=== PATIENT | male | born 1990 | race Caucasian/White ===

== ENCOUNTER 2017-09-18 14:30 | Inpatient (IN) | payer MEDICAID ==
[~2017-09-18] VITALS: Ht 185.4 cm; Wt 77.1 kg
[2017-09-18 14:30] VITALS: BP_SYST 139
[2017-09-18] MEDS ORDERED: NACL 0.9% 1,000 ML IV ONE (15:00)
[2017-09-18] MEDS ORDERED: FOLIC ACID 1 MG, THIAMINE HCL 100 MG, MAGNESIUM SULFATE 1 GM, MVI 10 ML in NACL 0.9% 1,... IV ONE (15:00)
[2017-09-18 15:07] LABS: BASOPHILS % (AUTO) 0.7 % (0.0-2.0); EOSINOPHILS % (AUTO) 0.2 % (0.0-4.0); HEMATOCRIT 50.6 % (36-54); HEMOGLOBIN 17.1 g/dL (14.0-18.0); LYMPHOCYTES # (AUTO) 1.1 K/uL (1.0-5.5); LYMPHOCYTES % (AUTO) 25.5 % (20.5-51.5); MEAN CORPUSCULAR HEMOGLOBIN 32 pg (27-31); MEAN CORPUSCULAR HGB CONC 34 % (32-36); MEAN CORPUSCULAR VOLUME 94 fL (79.0-98.0); MONOCYTES # (AUTO) 0.4 K/uL (0.0-1.0); MONOCYTES % (AUTO) 10.2 % (1.7-9.3); NEUTROPHILS # (AUTO) 2.9 K/uL (1.8-7.7); NEUTROPHILS % (AUTO) 63.4 % (40.0-70.0); PLATELET COUNT (AUTO) 191 K/uL (130-430); RED BLOOD CELL COUNT(AUTO) 5.37 MIL/uL (4.2-6.2); RED CELL DISTRIBUTION WIDTH 13.8 % (9.0-15.0); WHITE BLOOD COUNT (AUTO) 4.4 K/uL (4.8-10.8)
[2017-09-18 15:15] LABS: ANION GAP 15 (5-15); CALCIUM 8.8 mg/dL (8.4-11.0); CHLORIDE 96 mmol/L (98-107); CREATININE 0.82 mg/dL (0.55-1.30); GLUCOSE 122 mg/dL (70-99); POTASSIUM 3.6 mmol/L (3.5-5.1); SODIUM SERUM 141 mmol/L (136-145); UREA NITROGEN, BLOOD 11 mg/dL (8-21)
[2017-09-18 15:16] LABS: GFR AFRICAN AMERICAN 143 mL/min (>90)
[2017-09-18 15:20] LABS: INR 0.9 (0.80-1.20); PROTHROMBIN TIME 8.8 SECS (9.5-12.5)
[2017-09-18 15:23] LABS: ALANINE AMINOTRANSFERASE 57 U/L (12-78); ALBUMIN 4.7 g/dL (3.4-4.8); ASPARTATE AMINOTRANSFERASE 100 U/L (10-37); TOTAL BILIRUBIN 0.6 mg/dL (0.0-1.0)
[2017-09-18 15:27] LABS: ALCOHOL, BLOOD 479 mg/dL (<10)
[2017-09-18 15:31] LABS: ACETAMINOPHEN < 1 ug/mL (1-30)
[2017-09-18 16:46] VITALS: BP_SYST 119
[2017-09-18] MEDS ORDERED: LORazepam 2 MG/ML VIAL ONE (18:00)
[2017-09-18 20:00] VITALS: BP_SYST 134
[2017-09-18] MEDS: QUEtiapine FUMARATE 100 MG TABLET PO SCH (20:26)
[2017-09-18] MEDS: LORazepam 2 MG/ML VIAL IVP PRN ×2 (21:58→23:02)
[2017-09-19] MEDS: LORazepam 2 MG/ML VIAL IVP PRN ×10 (00:12→21:50)
[2017-09-19 00:45] VITALS: BP_SYST 101
[2017-09-19 05:09] VITALS: BP_SYST 105
[2017-09-19 07:07] LABS: BASOPHILS # (AUTO) 0.1 K/uL (0.0-0.2); BASOPHILS % (AUTO) 1.3 % (0.0-2.0); HEMATOCRIT 39.8 % (36-54); HEMOGLOBIN 13.8 g/dL (14.0-18.0); LYMPHOCYTES # (AUTO) 0.9 K/uL (1.0-5.5); MEAN CORPUSCULAR HEMOGLOBIN 32 pg (27-31); MEAN CORPUSCULAR HGB CONC 35 % (32-36); MEAN CORPUSCULAR VOLUME 93 fL (79.0-98.0); MONOCYTES # (AUTO) 0.4 K/uL (0.0-1.0); MONOCYTES % (AUTO) 8.9 % (1.7-9.3); NEUTROPHILS # (AUTO) 2.8 K/uL (1.8-7.7); NEUTROPHILS % (AUTO) 67.8 % (40.0-70.0); PLATELET COUNT (AUTO) 119 K/uL (130-430); RED BLOOD CELL COUNT(AUTO) 4.28 MIL/uL (4.2-6.2); RED CELL DISTRIBUTION WIDTH 13.8 % (9.0-15.0); WHITE BLOOD COUNT (AUTO) 4.2 K/uL (4.8-10.8)
[2017-09-19 07:41] LABS: ALBUMIN 3.5 g/dL (3.4-4.8); CALCIUM 9.1 mg/dL (8.4-11.0); CREATININE 0.65 mg/dL (0.55-1.30); POTASSIUM 3.4 mmol/L (3.5-5.1); TOTAL BILIRUBIN 0.7 mg/dL (0.0-1.0)
[2017-09-19 08:04] VITALS: BP_SYST 142
[2017-09-19 08:59] LABS: BILIRUBIN,URINE NEGATIVE (NEGATIVE); BLOOD, URINE NEGATIVE (NEGATIVE); CLARITY/URINE CLEAR (CLEAR); COLOR,URINE YELLOW (YELLOW); GLUCOSE,URINE NEGATIVE (NEGATIVE); KETONES,URINE TRACE (NEGATIVE); LEUKOCYTE ESTERASE ,URINE NEGATIVE (NEGATIVE); NITRITE, URINE NEGATIVE (NEGATIVE); PH,URINE 6.5 (5.0-8.0); PROTEIN URINE NEGATIVE (NEGATIVE); UROBILINOGEN,URINE 0.2 (0.2-1.0)
[2017-09-19 10:22] LABS: CANNABINOID, URINE POSITIVE (NEG <=50)
[2017-09-19 10:23] LABS: BARBITURATE, URINE NEGATIVE (NEG <=200); BENZODIAZEPINE, URINE POSITIVE (NEG <=150); COCAINE, URINE NEGATIVE (NEG <=150); METHAMPHETAMINES SCREEN,URINE NEGATIVE (NEG <=500); OPIATE, URINE POSITIVE (NEG <=100); PHENCYCLIDINE SCREEN,URINE NEGATIVE (NEG <=25); UR TRICYCLIC ANTIDEPRESSANTS POSITIVE (NEG <=300); URINE AMPHETAMINE NEGATIVE (NEG <=500); URINE METHADONE NEGATIVE (NEG <=200); URINE OXYCODONE SCREEN NEGATIVE (NEG <=100); URINE PROPOXYPHENE SCREEN NEGATIVE (NEG <=300)
[2017-09-19 12:03] VITALS: BP_SYST 136
[2017-09-19] MEDS ORDERED: MILK OF MAGNESIA 30 ML UDC PO PRN ×2 (13:15)
[2017-09-19] MEDS ORDERED: POTASSIUM CHLORIDE 20 MEQ TAB.PRT.SR PO ONE (15:15)
[2017-09-19] MEDS ORDERED: chlordiazePOXIDE HCL 25 MG CAPSULE PO ONE (15:15)
[2017-09-19 16:46] VITALS: BP_SYST 118
[2017-09-19] MEDS: chlordiazePOXIDE HCL 25 MG CAPSULE PO SCH ×2 (17:00→20:30)
[2017-09-19] MEDS: QUEtiapine FUMARATE 100 MG TABLET PO SCH (18:07)
[2017-09-19 20:00] VITALS: BP_SYST 127
[2017-09-19] MEDS: POTASSIUM CHLORIDE 20 MEQ TAB.PRT.SR PO SCH (20:30)
[2017-09-20 00:50] VITALS: BP_SYST 126
[2017-09-20 08:02] VITALS: BP_SYST 131
[2017-09-20] MEDS: chlordiazePOXIDE HCL 25 MG CAPSULE PO SCH ×3 (08:04→17:00)
[2017-09-20] MEDS: POTASSIUM CHLORIDE 20 MEQ TAB.PRT.SR PO SCH (08:04)
[2017-09-20] MEDS: LORazepam 2 MG/ML VIAL IVP PRN ×4 (08:26→15:31)
[2017-09-20 12:45] VITALS: BP_SYST 122
[2017-09-20 18:14] VITALS: BP_SYST 115; BP_SYST 138
[2017-09-20 18:42] VITALS: BP_SYST 138
== END 2017-09-20 19:00 | disposition home or self-care (01) | DRG 425 ==
LOC: SED 14:30 → SMU 15:56 → STU 16:00
PROVIDERS: ADMIT Internal Medicine; ATTEND Internal Medicine
DX: E87.6 Hypokalemia (principal); F32.9 Major depressive disorder, single episode, unspecified; F10.129 Alcohol abuse with intoxication, unspecified; F19.10 Other psychoactive substance abuse, uncomplicated; Y90.9 Presence of alcohol in blood, level not specified; F41.1 Generalized anxiety disorder; F11.10 Opioid abuse, uncomplicated
CPT/HCPCS: 36415; 70450-TC; 70480; 71045; 80053; 80307; 81003; 84484; 85025; 85610-TC; 85730-TC; 93005; 96365; 99285; G0480; G0481; G0482; J2060; J3411; J3475; J3490; J7030

== ENCOUNTER 2018-05-02 09:30 | Emergency (ER) | payer MEDICAID ==
--- NOTE | 2018-05-02 09:30 | NUR ---
CALLED FOR TRIAGE AND PT NOT IN WAITING ROOM. ACCORDING TO ADMITTING STAFF, PT WAS ON THE PHONE AND WALKED OUTSIDE. SEARCHED OUTSIDE AND UNABLE TO LOCATE PT. CHARGE NURSE DONNIE SAENZ.
--- NOTE | 2018-05-02 09:40 | NUR ---
CALLED FOR TRIAGE AND UNABLE TO LOCATE PT.
--- NOTE | 2018-05-02 09:55 | NUR ---
CALLED BACK FOR TRIAGE AND UNABLE TO LOCATE PT. PT NOT IN WAITING ROOM OR OUTSIDE. PT IS LEFT WITHOUT BEING SEEN.
== END 2018-05-02 09:55 | disposition left against medical advice (07) ==
LOC: SED 09:30
DX: F41.9 Anxiety disorder, unspecified (principal); Z53.21 Procedure and treatment not carried out due to patient leaving prior to being seen by health care provider

== ENCOUNTER 2018-05-04 10:14 | Emergency (ER) | payer MEDICAID ==
[~2018-05-04] VITALS: Ht 185.4 cm; Wt 83.9 kg
[2018-05-04 10:26] VITALS: BP_SYST 144
--- NOTE | 2018-05-04 10:27 | NUR ---
Pt placed in bed 1
[2018-05-04] MEDS ORDERED: NACL 0.9% 1,000 ML IV ONE (10:32)
--- NOTE | 2018-05-04 10:42 | NUR ---
MD Rico at bedside.
--- NOTE | 2018-05-04 10:55 | NUR ---
Pt left AMA, Dr Rico is aware
== END 2018-05-04 10:55 | disposition left against medical advice (07) ==
LOC: SED 10:14
DX: F41.9 Anxiety disorder, unspecified (principal); F10.10 Alcohol abuse, uncomplicated
CPT/HCPCS: 71045; 99283

== ENCOUNTER 2018-05-30 10:59 | Emergency (ER) | payer MEDICAID ==
[~2018-05-30] VITALS: Ht 185.4 cm; Wt 83.9 kg
[2018-05-30 11:54] VITALS: BP_SYST 132
[2018-05-30 12:58] LABS: BASOPHILS % (AUTO) 0.3 % (0.0-2.0); EOSINOPHILS % (AUTO) 0.1 % (0.0-4.0); HEMATOCRIT 45.7 % (36-54); LYMPHOCYTES # (AUTO) 1.2 K/uL (1.0-5.5); LYMPHOCYTES % (AUTO) 21.1 % (20.5-51.5); MEAN CORPUSCULAR HEMOGLOBIN 33 pg (27-31); MEAN CORPUSCULAR HGB CONC 35 % (32-36); MEAN CORPUSCULAR VOLUME 95 fL (79.0-98.0); MONOCYTES # (AUTO) 0.4 K/uL (0.0-1.0); MONOCYTES % (AUTO) 6.5 % (1.7-9.3); NEUTROPHILS # (AUTO) 3.9 K/uL (1.8-7.7); PLATELET COUNT (AUTO) 270 K/uL (130-430); RED BLOOD CELL COUNT(AUTO) 4.83 MIL/uL (4.2-6.2); RED CELL DISTRIBUTION WIDTH 13.8 % (9.0-15.0); WHITE BLOOD COUNT (AUTO) 5.5 K/uL (4.8-10.8)
[2018-05-30] MEDS ORDERED: LORazepam 2 MG/ML VIAL (FOR ER USE) IVP ONE (13:00)
[2018-05-30] MEDS ORDERED: NACL 0.9% 1,000 ML IV ONE (13:00)
[2018-05-30 13:10] LABS: CALCIUM 8.4 mg/dL (8.4-11.0); CREATININE 0.77 mg/dL (0.55-1.30); POTASSIUM 3.7 mmol/L (3.5-5.1)
[2018-05-30 13:15] LABS: ALBUMIN 4.2 g/dL (3.4-4.8); TOTAL BILIRUBIN 0.5 mg/dL (0.0-1.0)
[2018-05-30 14:13] VITALS: BP_SYST 123
== END 2018-05-30 14:00 | disposition home or self-care (01) ==
LOC: SED 10:59
DX: F10.239 Alcohol dependence with withdrawal, unspecified (principal); R03.0 Elevated blood-pressure reading, without diagnosis of hypertension
CPT/HCPCS: 36415; 80053; 85025; 96374; 99283; J2060; J7030